=== PATIENT | female | born 1970 | race Caucasian/White ===

== ENCOUNTER 2018-12-11 07:56 | Day surgery (SDC) ==
[2018-12-05 14:24] LABS: BASO# 0.05 X1000 (0.0-0.2); BASO% 0.7 % (0.0-0.8); EOS# 0.28 X1000 (0.0-0.7); EOS% 3.8 % (0.0-10.0); HEMATOCRIT 45.2 % (37.0-47.0); HEMOGLOBIN 15.2 g/dL (12.0-16.0); LYMPH# 1.98 X1000 (1.2-3.4); MCH 32.5 PG (27-31); MCHC 33.6 g/dL (33-37); MCV 96.8 FL (81-99); MONO# 0.57 X1000 (0.11-0.59); MONO% 7.8 % (1.7-9.3); MPV 10.7 FL (7.4-10.4); NEUT# 4.45 X1000 (1.4-6.5); NEUT% 60.7 % (42.2-75.2); PLT 236 X1000 (130-400); RBC 4.67 XMIL (4.2-5.4); RDW 12.7 % (11.5-14.5); WBC 7.33 X1000 (4.8-10.8)
--- NOTE | 2018-12-10 08:50 | HISTORY AND PHYSICAL ---
HISTORY: The patient is a 48-year-old female referred to me by our nurse practitioner because of advanced stage prolapse. On evaluation initially by her, she was having the feeling of an egg sitting at the introitus and, on examination after referral, she was found to have POP-Q stage 3 prolapse with the leading edge being BA at +3. She had lateral detachment bilaterally and apically. She is wishing to proceed with surgical intervention. The risks and benefits of abdominal sacrocolpopexy with midurethral sling were explained at length. She understands and is wishing to proceed. PAST MEDICAL HISTORY: Positive for rheumatoid arthritis. PAST SURGICAL HISTORY: Positive for transvaginal hysterectomy with bilateral tubal ligation. The patient is noted to be a para 3, 0-0-3, with forceps delivery for each child. ALLERGIES: Aspirin. CURRENT MEDICATIONS: Gabapentin 300, Mobic, Ambien, and Zanaflex. FAMILY HISTORY: Positive for arthritis in her mother. No cancer risks. SOCIAL HISTORY: Negative for tobacco, ETOH, or drugs. 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 PHYSICAL EXAMINATION: GENERAL: BMI is 31. HEENT: Normocephalic, atraumatic. PERRLA, EOMI. No thyromegaly. CV: Regular rate and rhythm without murmur, gallop, or rub. PULMONARY: Clear to auscultation and percussion. ABDOMEN: Soft. : Stage 3 prolapse AA 0, BA +3, C -7, TBL 11, AP -1, BP -4, GH 7, PB 4. NEURO: Afocal. ASSESSMENT/PLAN: Patient was counseled at length regarding pessary management. However, she is very active in her lifestyle and she is sexually active. She is wishing to proceed with sacrocolpopexy and mid urethral sling. The risks and benefits of this procedure were explained at length. cc: Aguilar Toledo MD
[~2018-12-11 07:56] MED LIST: DIPRIVAN 1% ONE; QUELICIN (DOSE) ONE; ROBINUL ONE; XYLOCAINE-MPF 2% ONE
[2018-12-11] MEDS ORDERED: LR 1,000 ML ONE ×2 (08:36→10:48)
[2018-12-11] MEDS ORDERED: KEFZOL 2 GM/D5W 2 GM/50 ML IVPB ONE (08:36)
--- NOTE | 2018-12-11 10:41 | H&P REVIEW ---
H&P Update H&P Review: H&P was reviewed and patient was examined, No change has occurred in the patient's condition
[2018-12-11] MEDS ORDERED: D10W 1,000 ML ONE (10:48)
[2018-12-11] MEDS ORDERED: SENSORCAINE-MPF 0.5%/EPI 1:200,000 ONE (10:48)
[2018-12-11] MEDS ORDERED: ZOFRAN ONE (11:00)
[2018-12-11] MEDS ORDERED: LASIX ONE (11:00)
[2018-12-11] MEDS ORDERED: DECADRON ONE (11:00)
[2018-12-11] MEDS ORDERED: TORADOL ONE (11:00)
[2018-12-11 11:47] LABS: URINE SOURCE CATH
[2018-12-11 11:52] LABS: BILIRUBIN URINE NEGATIVE (NEGATIVE); BLOOD URINE NEGATIVE (NEGATIVE); COLOR YELLOW; GLUCOSE URINE NEGATIVE (NEGATIVE); KETONE URINE NEGATIVE (NEGATIVE); LEUKOCYTES URINE NEGATIVE (NEGATIVE); NITRITE URINE NEGATIVE (NEGATIVE); PH URINE 8.5; PROTEIN URINE NEGATIVE (NEGATIVE); SP GRAVITY URINE 1.004; TURBIDITY URINE CLEAR (CLEAR); UR EPITHELIAL CELLS <10 /HPF (<10); URINE BACTERIA NEGATIVE /HPF; URINE RBC <10 /HPF (<10); URINE WBC <10 /HPF (<10); UROBILINOGEN URINE NORMAL (NORMAL)
[2018-12-11] MEDS ORDERED: ROBINUL ONE (12:16)
[2018-12-11] MEDS ORDERED: NEOSTIGMINE ONE (12:17)
[2018-12-11] MEDS ORDERED: LR 2,000 ML ONE (13:59)
[2018-12-11] MEDS ORDERED: ZOFRAN ODT PO PRN (14:44)
[2018-12-11] MEDS ORDERED: NORCO-5 PO PRN (14:44)
--- NOTE | 2018-12-11 14:49 | OPERATIVE NOTE ---
PROCEDURE DATE: 12/11/2018 POSTOPERATIVE DIAGNOSIS: Symptomatic pelvic organ prolapse. POSTOPERATIVE DIAGNOSIS: Symptomatic pelvic organ prolapse. PROCEDURE: 1. Da Jennifer abdominal sacrocolpopexy. 2. Mid urethral sling with Obtryx. SURGEON: Aguilar Toledo MD CAR CHANGER: [place] [*] ANESTHESIA: General. ESTIMATED BLOOD LOSS: 50 mL. HISTORY: The patient is a 48-year-old female with a history of prior hysterectomy, who is having increasing problems with pelvic organ prolapse and on examination was found to have POP-Q stage III prolapse. She refused pessary management and wished to proceed to surgical intervention. OPERATIVE FINDINGS: Patient is found to have POP-Q stage III prolapse, consistent with her preoperative diagnosis and normal abdominal exam. OPERATIVE PROCEDURE: Patient was taken to the operating room and placed in supine position. After adequate general anesthesia was obtained, she was placed in the [facility] and her abdomen and vagina were prepped and draped in the usual fashion. A supraumbilical incision was made and a 12 mm port and sheath were introduced through this incision into the abdominal cavity after infiltration of 0.25% Marcaine with epinephrine. Pelvic contents were visualized. [*]insufflation with CO2 to an intra-abdominal pressure of 14 was performed. The left-sided ports were placed under direct visualization after infiltration with the same local anesthetic and then the right ports were placed in a similar fashion under direct visualization. The patient was placed in the deep Trendelenburg position and EEA sizers were placed within the vagina and anus and Mistry catheter was placed. The robot was docked in the usual fashion. Hot scissors in the right hand. The PK bipolar device was in the left hand, and the third arm contained the [employer] grasper to assist with manipulation. The patient did not have any adhesions to the vaginal cuff from above. However, the right fallopian tube had a small portion of a hydrosalpinx that was involving the most superior portion of the vagina. We were able to grasp this and actually used this to assist with our dissection in the vesicovaginal space. No other abnormalities were noted. Both ovaries were found to be within normal limits so as noted above we grasped the fallopian tube, elevating it, and this actually elevated the bladder as well and easily demonstrated for us the vesicovaginal plane. We began with our dissection in the vesicovaginal plane using a spread technique with the hot scissors with minimal cautery. We dissected down approximately 8 to 9 cm anteriorly until we came to the area of thickening of the vesicovaginal space. The Mistry catheter bulb was just below this area. We then went into the posterior compartment, developing the rectovaginal space in a similar fashion using a spread technique with minimal cautery. This also was easily developed. Our blood loss at this time was approximately 3-5 mL. We then turned our attention towards the promontory. We elevated the peritoneum off the promontory and opened this space up. We removed 1 to 2 cm of presacral fat from this area, exposing the anterior longitudinal ligament. We were able to visualize the vessels but were well out of the operative site of the vessels. We did not have to be concerned with placement into those areas. We then developed our tunnel starting at the sacral promontory and going all the way down to the vaginal apex. Mesh was trimmed appropriately. We had 8 cm trimmed anteriorly and approximately 8 to 9 cm trimmed posteriorly and then we left our 3rd arm at approximately 6 cm. The mesh was placed intraperitoneally after identification of the anterior and posterior arms. Starting in the vesicovaginal space and starting distally, we use Cloverdale-Chace sutures with an initial surgeon's throw and 4 half-throws. After this we placed approximately 8 to 10 sutures in the anterior compartment and approximately 8 sutures in the posterior compartment in a similar fashion with the same knot arrangement at each site. The third arm was brought up to the promontory and the apex of the cuff was elevated with the EEA Sizer. Two sutures were placed through the third arm in the anterior longitudinal ligament and the ureter was well out of the operative site in this area. Excessive mesh was trimmed at the third arm site. We then reperitonealized using a V-Loc suture with complete coverage of the mesh throughout. Copious amounts of irrigation was performed and our blood loss at this time had been approximately 5-10 mL so the decision made at this point to terminate this portion of procedure. The Olegario-Thomasen system was utilized to close the fascia of both the assistance port as well as the supraumbilical camera port. This was done with a 0 Vicryl ligature. After completion of this, the abdomen was deflated of all gas and all ports removed under direct visualization. Nursing services closed the skin incisions with a 4-0 Vicryl ligature in a subcuticular fashion and then surgical glue was placed. Vaginally we had excellent anterior and apical support. There was a slight distal anterior defect near the urethrovesical neck but we felt that the bladder neck would be stabilized with the sling and no further therapy needed to be completed in this area. We grasped the urethra proximally and distally and injected another 8 to 10 mL of the same local anesthetic mixture. A sagittal incision was made and Metzenbaum scissors were utilized to dissect up to the 10 o'clock and 2 o'clock positions on the ischial pubic ramus. Based on the bony landmarks of the ramus as well as the insertion of the adductor longus, a stab incision was initially made on the left-hand side. Halo device was introduced through this incision through the obturator foramen, into the filter plant operator's finger, which directed the needle out. The mesh was attached to it and it was retracted back through the skin. This was performed on the contralateral side in a similar fashion. Mistry catheter had been removed. Cystoscope was placed within the bladder. The bladder was filled to 300 mL of D10. Both ureters were effluxing urine without any difficulty. There were no abnormalities in terms of our surgical technique. There was no evidence of any mesh or any sutures. There were some hemorrhagic changes consistent either with a Mistry injury or with possible interstitial cystitis, but no other abnormalities. The cystoscope was removed. Mistry catheter was placed. Rectal examination was performed. We closed the mid urethral incision with a running 2-0 Vicryl ligature. She does have somewhat slight gaping in the genital hiatus. However, because of her size and her sexual activity, decision was made not to close this area so we terminated this procedure at this point. Sponge count, instrument count, and needle counts were correct x3. The patient was taken out of low adjustable stirrups. She was awakened and taken to the recovery room with vital signs stable. cc: Aguilar Toledo MD
[2018-12-11] MEDS: LR 1,000 ML IV SCH ×2 (18:45→21:14)
[2018-12-11] MEDS: TORADOL IV SCH ×2 (18:45→21:15)
[2018-12-11] MEDS ORDERED: AMBIEN PO SCH (21:00)
[2018-12-11] MEDS: COLACE PO SCH (21:15)
[2018-12-11] MEDS: PERIDEX MT SCH (21:15)
[2018-12-12] MEDS: TORADOL IV SCH (04:52)
[2018-12-12] MEDS: COLACE PO SCH (08:14)
[2018-12-12] MEDS: PERIDEX MT SCH (08:14)
--- NOTE | 2018-12-12 09:16 | DISCHARGE SUMMARY ---
ADMISSION DATE: 12/11/2018 DISCHARGE DATE: 12/12/2018 PRINCIPAL DIAGNOSIS: Pelvic organ prolapse. PROCEDURE: Da Jennifer abdominal sacrocolpopexy, mid urethral sling with Obtryx. HISTORY: The patient is a 48-year-old female with history of prior vaginal hysterectomy, who was having increasing problems with symptomatic pelvic organ prolapse. She was admitted for surgical intervention. HOSPITAL COURSE: The patient underwent the above-stated procedure. Blood loss at that time was approximately 30 mL. Postoperative course has been uncomplicated. She is being discharged home with instructions for followup in 2 weeks. DISCHARGE MEDICATIONS: [place], Colace and Toradol. DISCHARGE INSTRUCTIONS: She was instructed on a regular diet and decreased activity. cc: Aguilar Toledo MD
[2018-12-12 12:09] VITALS: BP 105/59
[2018-12-12] MEDS ORDERED: TORADOL IV SCH (12:45)
== END 2018-12-12 15:00 | disposition home or self-care (01) ==
LOC: PAT 07:56 → OPS 07:56 → 4N 07:56 → OPS 12-12 15:00
PROVIDERS: ATTEND Obstetrics & Gynecology
CPT/HCPCS: 81001; 85025; 94799; A9270; C1771; C1781; J0330; J0690; J1100; J1885; J1940; J2405; J7120; S2900